=== PATIENT | female | born 1940 | race Caucasian/White ===

== ENCOUNTER → 2016-07-14 | Outpatient (CLI) | payer MEDICARE, BC ==
[~2016-07-14] MED LIST: ASPI-482 PO; DULO30CA2 PO; HYDR25TA9 PO; MELO7.5T5 PO; METO1TAB33 PO; OMEP20CA9 PO; OXYC1TAB6 PO; SOLI5TAB PO; TRIA15CR3 TP
--- NOTE | 2016-07-14 14:28 | KCIC ---
PROCEDURE MRI right wrist without contrast dated 07/14/16. HISTORY Right wrist injury. Swelling. Recent fall. TECHNIQUE Routine multiplanar multisequence MR imaging right wrist performed. No contrast administered. COMPARISON none FINDINGS Patchy edema throughout the marrow of the distal radius. There is a comminuted intra-articular fracture of the distal radius, not significantly displaced. No significant articular surface depression. Distal ulna is intact. Subchondral cystic changes at the triquetrum, capitate and hamate. No additional areas of bone marrow edema or acute fracture line. Widening of the scapholunate distance measuring up to 4.5 millimeter. The dorsal attachment of the scapholunate ligament is ill-defined. There is also abnormal signal of the central membranous component. Thickening in increased signal of the volar are attachment with some fibers that appear to remain intact. Mild dorsal tilt of the lunate. There is a small loose body along the posterior margin lunate bone that measures 3 millimeters in size. Lunotriquetral ligament is grossly intact. Triangular fibrocartilage complex appears to be intact on the radial side. Dural foveal and styloid attachments are grossly intact. Severe degenerative change of the 1st carpometacarpal joint with adjacent bony fragmentation. Mild degenerate change of the radiocarpal joint. Flexor and extensor tendons are intact. Mild increased signal of the extensor carpi ulnaris which appears somewhat enlarged. No significant tendon sheath fluid. Carpal tunnel and ulnar tunnel are intact. IMPRESSION - Comminuted intra-articular fracture of the distal radius, not significantly displaced. 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 - Severe degenerative change of the 1st carpometacarpal joint. Electronically signed by: Morteza Nelson (Jul 14, 2016 14:26:32)
== END | disposition home or self-care (01) ==
LOC: KCIC MRI 12:55
PROVIDERS: ATTEND Nurse Practitioner Family
DX: S52.571A Other intraarticular fracture of lower end of right radius, initial encounter for closed fracture (principal); M18.11 Unilateral primary osteoarthritis of first carpometacarpal joint, right hand; M70.841 Other soft tissue disorders related to use, overuse and pressure, right hand; S63.8X1A Sprain of other part of right wrist and hand, initial encounter; X58.XXXA Exposure to other specified factors, initial encounter; Y93.89 Activity, other specified; Y92.89 Other specified places as the place of occurrence of the external cause; Y99.8 Other external cause status
CPT/HCPCS: 73221